=== PATIENT | male | born 1970 | race African-American/Black ===

== ENCOUNTER 2023-05-09 23:54 | Inpatient (IN) | payer OTHER ==
[2023-05-10 01:05] LABS: BASO % 1.1 % (0-2.0); HEMATOCRIT 37.3 % (35.4-49); HEMOGLOBIN 12.4 GM/dL (11.7-16.9); MCH 29.3 pg (25.7-33.7); MCHC 33.2 g/dl (32.0-35.9); MEAN CELL VOLUME 88.2 fl (80-96); MEAN PLT VOLUME 7.4 fl (7.5-11.1); MONO % 9.6 % (3.8-10.2); NEUT % 51.3 % (42.8-82.8); PLATELET COUNT 317 10^3/uL (134-434); RBC 4.23 M/mm3 (4.00-5.60); RDW 14.9 % (11.9-15.9); WHITE BLOOD COUNT 8.6 K/mm3 (4.0-10.0)
[2023-05-10 01:15] LABS: INR 1.06 (0.83-1.09); PROTHROMBIN TIME (PATIENT) 12.3 SEC (9.7-13.0)
[2023-05-10 01:18] LABS: ACTIVATED PTT 32.1 SECONDS (25.2-36.5)
[2023-05-10 01:31] LABS: POTASSIUM 4.2 mmol/L (3.5-5.1)
[2023-05-10 01:32] LABS: CALCIUM 8.9 mg/dL (8.5-10.1)
[2023-05-10 01:33] LABS: ALBUMIN 3.4 g/dl (3.4-5.0); BLOOD UREA NITROGEN 20.1 mg/dL (7-18)
[2023-05-10 01:35] LABS: CREATININE 1.2 mg/dL (0.55-1.3)
[2023-05-10 01:38] LABS: BILIRUBIN,TOTAL 0.2 mg/dL (0.2-1); TOT PROT 6.8 g/dl (6.4-8.2)
[2023-05-10] MEDS ORDERED: ACETAMINOPHEN 1000 MG/100 ML BAG IVPB PRN (06:59)
[2023-05-10] MEDS ORDERED: HYDROmorphone HCl 2 MG/ML VIAL IVPUSH ONE (07:01)
[2023-05-10] MEDS ORDERED: HYDROmorphone HCl 2 MG/ML VIAL IVPUSH PRN (07:02)
[2023-05-10] MEDS ORDERED: NICOTINE 21 MG/24 HOURS TOPICAL PATCH ONE (10:20)
[2023-05-10] MEDS: NICOTINE 21 MG/24 HOURS TOPICAL PATCH TD SCH (10:24)
[2023-05-10 13:58] VITALS: BMI 25.9
[2023-05-10] MEDS: ATORVASTATIN CA 40 MG TABLET (FP) PO SCH (21:52)
[2023-05-10] MEDS: MELATONIN 5 MG TABLETS PO SCH (23:37)
[2023-05-11 09:36] LABS: BASO % 0.6 % (0-2.0); EOS % 1.9 % (0-4.5); HEMATOCRIT 40.7 % (35.4-49); HEMOGLOBIN 13.2 GM/dL (11.7-16.9); LYMPH % 30.8 % (8-40); MCH 28.3 pg (25.7-33.7); MCHC 32.3 g/dl (32.0-35.9); MEAN CELL VOLUME 87.8 fl (80-96); MEAN PLT VOLUME 7.6 fl (7.5-11.1); MONO % 8.8 % (3.8-10.2); NEUT % 57.9 % (42.8-82.8); PLATELET COUNT 344 10^3/uL (134-434); RBC 4.64 M/mm3 (4.00-5.60); RDW 14.8 % (11.9-15.9)
[2023-05-11 10:21] LABS: POTASSIUM 4.5 mmol/L (3.5-5.1)
[2023-05-11 10:26] LABS: MAGNESIUM 1.9 mg/dL (1.8-2.4)
[2023-05-11 10:31] LABS: TOT PROT 6.6 g/dl (6.4-8.2)
[2023-05-11 10:32] LABS: BLOOD UREA NITROGEN 13.8 mg/dL (7-18)
[2023-05-11 10:35] LABS: PHOSPHOROUS 3.6 mg/dL (2.5-4.9)
[2023-05-11 10:37] LABS: ALBUMIN 3.4 g/dl (3.4-5.0); BILIRUBIN,TOTAL 0.6 mg/dL (0.2-1)
[2023-05-11 10:41] LABS: CREATININE 0.9 mg/dL (0.55-1.3)
[2023-05-11] MEDS: NICOTINE 21 MG/24 HOURS TOPICAL PATCH TD SCH (10:58)
[2023-05-11 21:00] LABS: INR 1.1 (0.83-1.09); PROTHROMBIN TIME (PATIENT) 12.7 SEC (9.7-13.0)
[2023-05-11] MEDS ORDERED: MELATONIN 5 MG TABLETS PO SCH (22:00)
[2023-05-11] MEDS: ATORVASTATIN CA 40 MG TABLET (FP) PO SCH (22:21)
[2023-05-11] MEDS: MELATONIN 5 MG TABLETS PO SCH (22:21)
[2023-05-12] MEDS ORDERED: HEPARIN NA (PORCINE) 5,000 UNITS/ML 1ML VIAL IV ONE
[2023-05-12 08:42] LABS: HEMATOCRIT 43.6 % (35.4-49); HEMOGLOBIN 14.7 GM/dL (11.7-16.9); MCH 29.2 pg (25.7-33.7); MCHC 33.7 g/dl (32.0-35.9); MEAN CELL VOLUME 86.5 fl (80-96); MEAN PLT VOLUME 7.3 fl (7.5-11.1); PLATELET COUNT 372 10^3/uL (134-434); RBC 5.04 M/mm3 (4.00-5.60); WHITE BLOOD COUNT 11.5 K/mm3 (4.0-10.0)
[2023-05-12 09:02] LABS: POTASSIUM 4.2 mmol/L (3.5-5.1)
[2023-05-12 09:19] LABS: ALBUMIN 3.9 g/dl (3.4-5.0); CALCIUM 9.4 mg/dL (8.5-10.1); MAGNESIUM 2.1 mg/dL (1.8-2.4)
[2023-05-12 09:20] LABS: BLOOD UREA NITROGEN 16.3 mg/dL (7-18)
[2023-05-12 09:21] LABS: PHOSPHOROUS 3.6 mg/dL (2.5-4.9)
[2023-05-12 09:23] LABS: BILIRUBIN,TOTAL 0.8 mg/dL (0.2-1); TOT PROT 7.8 g/dl (6.4-8.2)
[2023-05-12] MEDS: NICOTINE 21 MG/24 HOURS TOPICAL PATCH TD SCH (10:19)
[2023-05-12] MEDS ORDERED: CEFAZOLIN SODIUM 2 GM in DEXTROSE 5%-WATER 100 ML IVPB ONE (13:00)
[2023-05-12] MEDS ORDERED: HEPARIN NA (PORCINE) 5,000 UNITS/ML 1ML VIAL ONE (13:29)
[2023-05-12] MEDS ORDERED: FENTANYL CITRATE/PF 50 MCG/ML VIAL ONE ×5 (15:00→18:10)
[2023-05-12] MEDS ORDERED: PROPOFOL 20 ML ONE (15:00)
[2023-05-12] MEDS ORDERED: ROCURONIUM BROMIDE 50 MG/5 ML SYRINGE ONE (15:00)
[2023-05-12] MEDS ORDERED: MIDAZOLAM HCL 2 MG/2 ML SINGLE DOSE VIAL ONE (15:00)
[2023-05-12] MEDS ORDERED: SEVOFLURANE 250 ML BTL ONE (15:00)
[2023-05-12] MEDS ORDERED: DEXAMETHASONE SOD PHOSPHATE 4 MG/1 ML VIAL ONE (15:10)
[2023-05-12] MEDS ORDERED: ONDANSETRON 4 MG/2 ML VIAL ONE (15:10)
[2023-05-12] MEDS ORDERED: LIDOCAINE HCL/PF 2% SDV 5ML VIAL ONE (15:10)
[2023-05-12] MEDS ORDERED: ceFAZolin SODIUM 1 GM VIAL IVPB ONE (15:32)
[2023-05-12] MEDS ORDERED: HYDROmorphone HCl 2 MG/ML VIAL ONE (15:38)
[2023-05-12] MEDS ORDERED: BUPIVACAINE HCL/PF 0.5% (5MG/ML) 10 ML VIAL ONE (15:50)
[2023-05-12] MEDS ORDERED: SUGAMMADEX SODIUM 200 MG/2 ML VIAL ONE (15:50)
[2023-05-12] MEDS ORDERED: BUPIVACAINE HCL/PF 0.5% (5MG/ML) 10 ML VIAL NR ONE ×2 (16:13→16:57)
[2023-05-12] MEDS ORDERED: POVIDONE-IODINE OINTMENT 10% - 28.4 GM TUBE ONE (16:36)
[2023-05-12] MEDS ORDERED: morphine CARPU-JECT 4 MG/1 ML DISP.SYRIN IVPUSH PRN (16:37)
[2023-05-12] MEDS ORDERED: CLOPIDOGREL BISULFATE 75 MG TABLET (FP) PO SCH (17:00)
[2023-05-12] MEDS ORDERED: ONDANSETRON 4 MG/2 ML VIAL IVPUSH PRN ×2 (17:25→20:11)
[2023-05-12] MEDS ORDERED: oxyCODONE HCL 5 MG TABLET PO PRN ×3 (17:25→20:11)
[2023-05-12] MEDS ORDERED: PROMETHAZINE HCL 25 MG/1 ML VIAL IVPB PRN ×2 (17:25→20:11)
[2023-05-12] MEDS ORDERED: morphine SULFATE 4 MG/ML VIAL IVPUSH PRN (17:27)
[2023-05-12] MEDS ORDERED: LACTATED RINGERS SOLUTION 1,000 ML IV SCH ×2 (17:30→20:11)
[2023-05-12] MEDS ORDERED: CLOPIDOGREL BISULFATE 75 MG TABLET (FP) ONE (17:59)
[2023-05-12] MEDS ORDERED: ACETAMINOPHEN INJECTION 100 ML IVPB ONE (18:04)
[2023-05-12] MEDS: ACETAMINOPHEN 1000 MG/100 ML BAG IVPB PRN ×2 (18:06→18:08)
[2023-05-12] MEDS ORDERED: ACETAMINOPHEN 1000 MG/100 ML BAG IVPB PRN (20:11)
[2023-05-12] MEDS: MUPIROCIN 2% TOPICAL OINTMENT FOR DECOLONIZATION NS SCH (21:45)
[2023-05-12] MEDS ORDERED: morphine SULFATE 4 MG/ML VIAL IVPUSH ONE (21:45)
[2023-05-12] MEDS: ATORVASTATIN CA 40 MG TABLET (FP) PO SCH (21:46)
[2023-05-12] MEDS ORDERED: CHLORHEXIDINE GLUCONATE 4% CLEANSER FOR DECOLONIZATION TP SCH ×3 (22:00)
[2023-05-12] MEDS ORDERED: MELATONIN 5 MG TABLETS PO SCH ×2 (22:00)
[2023-05-12] MEDS ORDERED: ATORVASTATIN CA 40 MG TABLET (FP) PO SCH (22:00)
[2023-05-12] MEDS ORDERED: MUPIROCIN 2% TOPICAL OINTMENT FOR DECOLONIZATION NS SCH ×2 (22:00)
[2023-05-12] MEDS: oxyCODONE HCL 5 MG TABLET PO PRN (23:51)
[2023-05-13] MEDS: morphine SULFATE 4 MG/ML VIAL IVPUSH PRN ×3 (02:35→18:41)
[2023-05-13] MEDS: oxyCODONE HCL 5 MG TABLET PO PRN ×3 (07:13→23:29)
[2023-05-13 08:07] LABS: HEMATOCRIT 38.5 % (35.4-49); HEMOGLOBIN 12.5 GM/dL (11.7-16.9); MCH 28.5 pg (25.7-33.7); MCHC 32.4 g/dl (32.0-35.9); MEAN CELL VOLUME 87.8 fl (80-96); MEAN PLT VOLUME 7.5 fl (7.5-11.1); PLATELET COUNT 324 10^3/uL (134-434); RBC 4.39 M/mm3 (4.00-5.60); RDW 14.7 % (11.9-15.9); WHITE BLOOD COUNT 13.9 K/mm3 (4.0-10.0)
[2023-05-13 08:21] LABS: POTASSIUM 4.2 mmol/L (3.5-5.1)
[2023-05-13 08:32] LABS: CALCIUM 8.5 mg/dL (8.5-10.1)
[2023-05-13 08:34] LABS: ALBUMIN 3.1 g/dl (3.4-5.0); BLOOD UREA NITROGEN 14.8 mg/dL (7-18); MAGNESIUM 1.8 mg/dL (1.8-2.4)
[2023-05-13 08:37] LABS: BILIRUBIN,TOTAL 0.9 mg/dL (0.2-1)
[2023-05-13 08:38] LABS: CREATININE 0.8 mg/dL (0.55-1.3); TOT PROT 6.2 g/dl (6.4-8.2)
[2023-05-13] MEDS: NICOTINE 21 MG/24 HOURS TOPICAL PATCH TD SCH ×2 (09:17→09:21)
[2023-05-13] MEDS: CLOPIDOGREL BISULFATE 75 MG TABLET (FP) PO SCH (09:17)
[2023-05-13] MEDS: MUPIROCIN 2% TOPICAL OINTMENT FOR DECOLONIZATION NS SCH (09:18)
[2023-05-13] MEDS ORDERED: NICOTINE 21 MG/24 HOURS TOPICAL PATCH TD SCH (10:00)
[2023-05-13] MEDS: MELATONIN 1 MG TABLET PO SCH (21:36)
[2023-05-13] MEDS: ATORVASTATIN CA 40 MG TABLET (FP) PO SCH (21:37)
[2023-05-14] MEDS: morphine SULFATE 4 MG/ML VIAL IVPUSH PRN (00:24)
[2023-05-14] MEDS: oxyCODONE HCL 5 MG TABLET PO PRN ×4 (06:21→22:50)
[2023-05-14 07:39] LABS: BASO % 0.8 % (0-2.0); EOS % 0.3 % (0-4.5); HEMATOCRIT 40.7 % (35.4-49); HEMOGLOBIN 13.4 GM/dL (11.7-16.9); LYMPH % 13.8 % (8-40); MCHC 32.9 g/dl (32.0-35.9); MEAN CELL VOLUME 88.1 fl (80-96); MEAN PLT VOLUME 7.7 fl (7.5-11.1); MONO % 10.5 % (3.8-10.2); NEUT % 74.6 % (42.8-82.8); PLATELET COUNT 338 10^3/uL (134-434); RBC 4.62 M/mm3 (4.00-5.60)
[2023-05-14 07:57] LABS: POTASSIUM 4.2 mmol/L (3.5-5.1)
[2023-05-14 08:00] LABS: ALBUMIN 3.4 g/dl (3.4-5.0); BLOOD UREA NITROGEN 12.7 mg/dL (7-18); CALCIUM 8.8 mg/dL (8.5-10.1); MAGNESIUM 1.6 mg/dL (1.8-2.4)
[2023-05-14 08:03] LABS: PHOSPHOROUS 3.8 mg/dL (2.5-4.9)
[2023-05-14] MEDS: CLOPIDOGREL BISULFATE 75 MG TABLET (FP) PO SCH (09:51)
[2023-05-14] MEDS ORDERED: POLYETHYLENE GLYCOL (HEALTHYLAX) 3350 17 GM PACKET PO SCH (10:00)
[2023-05-14] MEDS ORDERED: MAGNESIUM 2GM/50ML STERILE WATER IVPB IVPB ONE (16:30)
[2023-05-14] MEDS: NICOTINE 21 MG/24 HOURS TOPICAL PATCH TD SCH (16:58)
[2023-05-14] MEDS: POLYETHYLENE GLYCOL (HEALTHYLAX) 3350 17 GM PACKET PO SCH ×2 (21:02→21:55)
[2023-05-14] MEDS: MELATONIN 1 MG TABLET PO SCH (21:02)
[2023-05-14] MEDS: DOCUSATE SODIUM 100 MG CAPSULE (FP) PO SCH ×2 (21:02→21:55)
[2023-05-14] MEDS: ATORVASTATIN CA 40 MG TABLET (FP) PO SCH (21:02)
[2023-05-15] MEDS ORDERED: morphine SULFATE 4 MG/ML VIAL IVPUSH PRN (03:43)
[2023-05-15] MEDS: oxyCODONE HCL 5 MG TABLET PO PRN ×3 (04:56→22:38)
[2023-05-15 08:16] LABS: BASO % 0.7 % (0-2.0); EOS % 0.5 % (0-4.5); HEMATOCRIT 40.7 % (35.4-49); HEMOGLOBIN 13.2 GM/dL (11.7-16.9); LYMPH % 12.5 % (8-40); MCH 28.4 pg (25.7-33.7); MCHC 32.4 g/dl (32.0-35.9); MEAN CELL VOLUME 87.7 fl (80-96); MEAN PLT VOLUME 7.7 fl (7.5-11.1); MONO % 10.4 % (3.8-10.2); NEUT % 75.9 % (42.8-82.8); PLATELET COUNT 313 10^3/uL (134-434); RBC 4.64 M/mm3 (4.00-5.60); RDW 15.2 % (11.9-15.9); WHITE BLOOD COUNT 14.8 K/mm3 (4.0-10.0)
[2023-05-15 08:35] LABS: POTASSIUM 4.3 mmol/L (3.5-5.1)
[2023-05-15 08:39] LABS: ALBUMIN 3.4 g/dl (3.4-5.0); CALCIUM 9.1 mg/dL (8.5-10.1)
[2023-05-15 08:40] LABS: BLOOD UREA NITROGEN 13.7 mg/dL (7-18); MAGNESIUM 2.1 mg/dL (1.8-2.4)
[2023-05-15 08:43] LABS: BILIRUBIN,TOTAL 1.2 mg/dL (0.2-1); PHOSPHOROUS 3.8 mg/dL (2.5-4.9)
[2023-05-15 08:44] LABS: TOT PROT 7.2 g/dl (6.4-8.2)
[2023-05-15] MEDS: CLOPIDOGREL BISULFATE 75 MG TABLET (FP) PO SCH (09:54)
[2023-05-15] MEDS: POLYETHYLENE GLYCOL (HEALTHYLAX) 3350 17 GM PACKET PO SCH ×2 (09:54→21:14)
[2023-05-15] MEDS: NICOTINE 21 MG/24 HOURS TOPICAL PATCH TD SCH (09:55)
[2023-05-15 11:24] LABS: PH,URINE 5.5 (5.0-8.0); URINE APPEARANCE CLEAR; URINE BILIRUBIN NEGATIVE (NEGATIVE); URINE COLOR DK YELLOW; URINE GLUCOSE (UA) NEGATIVE (NEGATIVE); URINE KETONE NEGATIVE (NEGATIVE); URINE LEUK ESTERASE NEGATIVE (NEGATIVE); URINE NITRITE NEGATIVE (NEGATIVE); URINE PROTEIN TRACE (NEGATIVE)
[2023-05-15] MEDS: ENOXAPARIN NA (PORCINE) 80 MG/0.8 ML DISP.SYRIN SQ SCH (12:38)
[2023-05-15] MEDS: DOCUSATE SODIUM 100 MG CAPSULE (FP) PO SCH (21:14)
[2023-05-15] MEDS: MELATONIN 1 MG TABLET PO SCH (21:15)
[2023-05-15] MEDS ORDERED: ATORVASTATIN CA 40 MG TABLET (FP) PO SCH (22:00)
[2023-05-15] MEDS ORDERED: ARTIFICIAL TEARS (POLYVINYL ALCOHOL) OPTH DROPS OU PRN (23:35)
[2023-05-16] MEDS: ENOXAPARIN NA (PORCINE) 80 MG/0.8 ML DISP.SYRIN SQ SCH ×2 (00:01→11:38)
[2023-05-16 01:19] VITALS: RESP 20
[2023-05-16 08:17] LABS: BASO % 0.8 % (0-2.0); EOS % 1.1 % (0-4.5); HEMATOCRIT 37.8 % (35.4-49); HEMOGLOBIN 12.8 GM/dL (11.7-16.9); LYMPH % 16.7 % (8-40); MCH 29.1 pg (25.7-33.7); MCHC 33.9 g/dl (32.0-35.9); MEAN CELL VOLUME 85.7 fl (80-96); MEAN PLT VOLUME 7.7 fl (7.5-11.1); MONO % 10.5 % (3.8-10.2); NEUT % 70.9 % (42.8-82.8); PLATELET COUNT 332 10^3/uL (134-434); RBC 4.41 M/mm3 (4.00-5.60); RDW 14.4 % (11.9-15.9); WHITE BLOOD COUNT 12.9 K/mm3 (4.0-10.0)
[2023-05-16 08:24] LABS: POTASSIUM 4.3 mmol/L (3.5-5.1)
[2023-05-16 08:35] LABS: ALBUMIN 3.2 g/dl (3.4-5.0); BLOOD UREA NITROGEN 16.3 mg/dL (7-18)
[2023-05-16 08:37] LABS: CALCIUM 8.8 mg/dL (8.5-10.1); MAGNESIUM 1.9 mg/dL (1.8-2.4)
[2023-05-16 08:38] LABS: PHOSPHOROUS 3.7 mg/dL (2.5-4.9)
[2023-05-16 08:39] LABS: BILIRUBIN,TOTAL 1.2 mg/dL (0.2-1); TOT PROT 6.9 g/dl (6.4-8.2)
[2023-05-16] MEDS: POLYETHYLENE GLYCOL (HEALTHYLAX) 3350 17 GM PACKET PO SCH ×2 (09:12→09:14)
[2023-05-16] MEDS: CLOPIDOGREL BISULFATE 75 MG TABLET (FP) PO SCH (09:12)
[2023-05-16] MEDS: NICOTINE 21 MG/24 HOURS TOPICAL PATCH TD SCH ×2 (09:12→09:15)
[2023-05-16] MEDS ORDERED: ACETAMINOPHEN 1000 MG/100 ML BAG IVPB PRN (13:19)
[2023-05-16 14:02] VITALS: BP 132/82; PULSE 88; TEMP 98.8
== END 2023-05-16 15:51 | disposition home or self-care (01) | DRG 181 ==
LOC: JER 23:54 → JERBED 05-10 01:55 → J7W 05-10 10:28 → JICU 05-12 18:44 → J4W 05-14 22:28
PROVIDERS: ADMIT Internal Medicine; ATTEND Internal Medicine
PROC: 041K0JH Bypass Right Femoral Artery to Right Femoral Artery with Synthetic Substitute, Open Approach (ICD-10-PCS; principal; 2023-05-12 14:00)
DX: I74.5 Embolism and thrombosis of iliac artery (principal); I73.9 Peripheral vascular disease, unspecified; E78.5 Hyperlipidemia, unspecified; F12.90 Cannabis use, unspecified, uncomplicated; K59.00 Constipation, unspecified; R73.03 Prediabetes; F17.200 Nicotine dependence, unspecified, uncomplicated
CPT/HCPCS: 0241U-QW; 36415; 71045-TC-FY; 75635-TC; 80053; 80061; 81003; 83036; 83735; 84100; 84439; 84443; 84481; 84484; 85025; 85027; 85610; 85730; 86850; 86900; 86901; 86922; 87040; 87086; 93005; 93010; 93306-TC; 94010; 94760; 97116-GP; 99285-25; C1769; J1644

== ENCOUNTER 2023-06-29 22:18 | Inpatient (IN) | payer OTHER ==
[2023-06-29 22:23] VITALS: BMI 26.0
[2023-06-29 23:23] LABS: BASO % 0.7 % (0-2.0); EOS % 1.3 % (0-4.5); HEMATOCRIT 38.2 % (35.4-49); HEMOGLOBIN 12.7 GM/dL (11.7-16.9); LYMPH % 28.7 % (8-40); MCHC 33.3 g/dl (32.0-35.9); MEAN CELL VOLUME 87.1 fl (80-96); MEAN PLT VOLUME 7.3 fl (7.5-11.1); MONO % 9.6 % (3.8-10.2); NEUT % 59.7 % (42.8-82.8); PLATELET COUNT 313 10^3/uL (134-434); RBC 4.39 M/mm3 (4.00-5.60); RDW 16.1 % (11.9-15.9); WHITE BLOOD COUNT 10.6 K/mm3 (4.0-10.0)
[2023-06-29 23:29] LABS: INR 1.08 (0.83-1.09); PROTHROMBIN TIME (PATIENT) 12.5 SEC (9.7-13.0)
[2023-06-29] MEDS ORDERED: DEXTROSE 5%-0.45% SALINE 1,000 ML IV SCH (23:30)
[2023-06-29 23:42] LABS: POTASSIUM 3.8 mmol/L (3.5-5.1)
[2023-06-29 23:45] LABS: CALCIUM 9.6 mg/dL (8.5-10.1)
[2023-06-29 23:46] LABS: BLOOD UREA NITROGEN 23.5 mg/dL (7-18)
[2023-06-29 23:49] LABS: CREATININE 1.4 mg/dL (0.55-1.3)
[2023-06-29 23:50] LABS: BILIRUBIN,TOTAL 0.6 mg/dL (0.2-1); TOT PROT 7.7 g/dl (6.4-8.2)
[2023-06-30] MEDS ORDERED: HEPARIN NA (PORCINE) 5,000 UNITS/ML 1ML VIAL SQ SCH (06:00)
[2023-06-30] MEDS: INSULIN SLIDING SCALE (NOVOLOG) 1 VIAL SQ SCH ×2 (06:46→16:07)
[2023-06-30 08:09] LABS: HEMATOCRIT 37.1 % (35.4-49); HEMOGLOBIN 12.1 GM/dL (11.7-16.9); MCH 28.9 pg (25.7-33.7); MCHC 32.7 g/dl (32.0-35.9); MEAN CELL VOLUME 88.5 fl (80-96); MEAN PLT VOLUME 7.3 fl (7.5-11.1); PLATELET COUNT 293 10^3/uL (134-434); RDW 16.5 % (11.9-15.9); WHITE BLOOD COUNT 7.8 K/mm3 (4.0-10.0)
[2023-06-30 08:30] LABS: POTASSIUM 4.1 mmol/L (3.5-5.1)
[2023-06-30 08:37] LABS: ALBUMIN 3.3 g/dl (3.4-5.0); BLOOD UREA NITROGEN 18.3 mg/dL (7-18)
[2023-06-30 08:38] LABS: CALCIUM 9.1 mg/dL (8.5-10.1)
[2023-06-30 08:42] LABS: BILIRUBIN,TOTAL 0.4 mg/dL (0.2-1)
[2023-06-30 08:43] LABS: TOT PROT 6.6 g/dl (6.4-8.2)
[2023-06-30] MEDS ORDERED: ceFAZolin SODIUM 1 GM VIAL IVPB ONE ×2 (09:50→11:31)
[2023-06-30] MEDS ORDERED: LIDOCAINE HCL 1%, 10 MG/ML (20ML VIAL) NR ONE ×3 (09:52→11:35)
[2023-06-30] MEDS ORDERED: HEPARIN NA (PORCINE) 5,000 UNITS/ML 1ML VIAL SQ ONE ×2 (09:52→11:45)
[2023-06-30] MEDS ORDERED: ONDANSETRON 4 MG/2 ML VIAL IVPUSH PRN ×2 (10:08→13:18)
[2023-06-30] MEDS ORDERED: LACTATED RINGERS SOLUTION 1,000 ML IV SCH ×2 (10:15→13:18)
[2023-06-30] MEDS ORDERED: SUCCINYLCHOLINE CHLORIDE 200 MG/10 ML SYRINGE ONE (11:14)
[2023-06-30] MEDS ORDERED: PROPOFOL 40 ML ONE (11:14)
[2023-06-30] MEDS ORDERED: MIDAZOLAM HCL 2 MG/2 ML SINGLE DOSE VIAL ONE ×2 (11:14→11:35)
[2023-06-30] MEDS ORDERED: DEXTROSE 5%-0.45% SALINE 1,000 ML IV SCH (13:18)
[2023-06-30] MEDS ORDERED: CLOPIDOGREL BISULFATE 75 MG TABLET (FP) ONE (13:22)
[2023-06-30] MEDS ORDERED: CLOPIDOGREL BISULFATE 75 MG TABLET (FP) PO ONE (13:24)
[2023-06-30] MEDS ORDERED: CLOPIDOGREL BISULFATE 75 MG TABLET (FP) PO SCH (13:30)
[2023-06-30] MEDS ORDERED: INSULIN SLIDING SCALE (NOVOLOG) 1 VIAL SQ SCH (16:30)
[2023-06-30 17:38] VITALS: BP 124/61; PULSE 57; RESP 18; TEMP 97.5
[2023-06-30] MEDS ORDERED: ATORVASTATIN CA 40 MG TABLET (FP) PO SCH ×2 (22:00)
== END 2023-06-30 18:00 | disposition home or self-care (01) | DRG 181 ==
LOC: JER 22:18 → JERBED 06-30 00:58 → J5S 06-30 03:57
PROVIDERS: ADMIT Internal Medicine
PROC: B40GYZZ Plain Radiography of Left Lower Extremity Arteries using Other Contrast (ICD-10-PCS; 2023-06-30)
PROC: 047J3ZZ Dilation of Left External Iliac Artery, Percutaneous Approach (ICD-10-PCS; principal; 2023-06-30 12:30)
DX: T82.898A Other specified complication of vascular prosthetic devices, implants and grafts, initial encounter (principal); N17.9 Acute kidney failure, unspecified; E11.51 Type 2 diabetes mellitus with diabetic peripheral angiopathy without gangrene; I10 Essential (primary) hypertension; I77.1 Stricture of artery; I73.9 Peripheral vascular disease, unspecified; R04.0 Epistaxis; E78.5 Hyperlipidemia, unspecified; D72.829 Elevated white blood cell count, unspecified; Y83.8 Other surgical procedures as the cause of abnormal reaction of the patient, or of later complication, without mention of misadventure at the time of the procedure; Y92.9 Unspecified place or not applicable
CPT/HCPCS: 36415; 71045-TC-FY; 76000-TC-FY; 76775-TC; 80053; 82550; 82553; 82962; 85025; 85027; 85610; 86850; 86900; 86901; 87635; 93005; 93010; 94760; 99285-25; J1644